=== PATIENT | male | born 1975 | race Caucasian/White ===

== ENCOUNTER 2021-05-29 23:18 | Inpatient (IN) | payer OTHER ==
[~2021-05-29] VITALS: Ht 172.7 cm; Wt 79.8 kg
--- NOTE | ~2021-05-29 | EMS ---
[address] [address] EMS Patient Care Report Name: YUVAL DAMON Room #: 359-P ADM IN M.R.#: [id number] Admission: 05/30/21 Attend Phys: Juan Francisco Gonzales MD Discharge: Date of : [birth year] Report #: [id number] THIS REPORT FOR: //name// Report Transmitted: 05/31/2021 09:44 EMS Care Summary [place], [place]/[facility] Incident [id number] @ 05/29/2021 22:51 Incident Location [address] [place] [address] Patient YUVAL DAMON Male, 49 Years 1972-05-24 Patient Address Patient History Asthma,Novel Coronavirus (COVID-19), Patient Allergies No known allergies, Patient Medications Albuterol, Chief Complaint Shortness of breath Disposition Transported No Lights/[place] Reason Breathing Problem Transported To [facility] Narrative Arrived on scene to be greeted by our patient at the front door of his home. Patient stated he had been feeling sick for approximately 2 weeks, with increasing weakness over the previous 7 days. Patient stated he had tested positive for Covid-19 5 days prior. Patient had called EMS due to shortness of breath. Patient stated in complete sentences that he just couldn't catch his [facility] [address] [place] [address] EMS Patient Care Report Name: YUVAL DAMON Room #: 359-P ADM IN M.[place].#: [id number] Admission: 05/30/21 Attend Phys: Juan Francisco Gonzales MD Discharge: Date of : [birth year] Report #: [id number] breath. Patient denied any chest pain, n/v, diarrhea, pain, or injuries. Patient stated he was extremely weak "all over." Initial Vitals @23:05P: 98,R: 22,BP: 137/88,Pain: 0/10,GCS: 15,CO: 0,SpO2: 90,Revised Trauma: 12, @23:00P: 105,R: 24,BP: 138/88,Pain: 0/10,GCS: 15,SpO2: 89,Revised Trauma: 12, Assessments @22:56MENTAL:Event Oriented,Place Oriented,Person Oriented,Time Oriented,SKIN:HEENT:Head/Face: No Abnormalities,Neck/Airway: No Abnormalities,LUNG SOUNDS:General: No Abnormalities,ABDOMEN:General: No Abnormalities,PELVIS//GI:No Abnormalities,EXTREMITIES:Left Arm: No Abnormalities,Right Arm: No Abnormalities,Left Leg: No Abnormalities,Right Leg: No Abnormalities,PULSE:NEURO:No Abnormalities, Impression COVID-19 - Confirmed by testing Procedures @22:56ALS AssessmentResponse: UnchangedSucceeded@23:01Oxygen FlowRate: 4 Device: Nasal Cannula (NC) Response: ImprovedSucceeded Timeline 22:50,Call Received 22:50,Dispatch Notified 22:51,Dispatched 22:52,En Route 22:56,On Scene 22:56,At Patient 22:56,ALS Assessment,Response: UnchangedSucceeded, 23:00,BP: 138/88 M,PULSE: 105,RR: 24 R,SPO2: 89 Ox,ETCO2: ,BG: ,PAIN: 0,GCS: 15, 23:01,Oxygen FlowRate: 4 Device: Nasal Cannula (NC) Response: ImprovedSucceeded, 23:02,Depart Scene 23:05,BP: 137/88 M,PULSE: 98,RR: 22 R,SPO2: 90 Ox,ETCO2: ,BG: ,PAIN: 0,GCS: 15, 23:14,At Destination 23:22,Call Closed Disclaimer v1.1 Copyright 2020 [employer] This EMS Care Summary contains data elements from the applicable legal record (which may be displayed differently). It is designed to provide pertinent information for the following purposes: continuity of care, clinical quality, and state data reporting. The complete legal record is available to ED staff and administrators of the receiving hospital in [facility]'s Patient Tracker. All data [address] [address] EMS Patient Care Report Name: YUVAL DAMON Room #: 359-P ADM IN M.R.#: [id number] Admission: 05/30/21 Attend Phys: Juan Francisco Gonzales MD Discharge: Date of : [birth year] Report #: [id number] is provided "as is."
[2021-05-29 23:19] VITALS: BP 127/80
[2021-05-30 00:14] LABS: ABSOLUTE NEUTROPHILS 10.5 thou/uL (1.4-8.2); BASOPHILS 0.1 % (0.0-2.0); HEMATOCRIT 45.7 % (42.0-52.0); HEMOGLOBIN 15.4 gm/dL (14.0-18.0); LYMPHOCYTES 5.9 % (24.0-44.0); MCH 30.8 pg (26.0-34.0); MCHC 33.8 g/dL (28.0-37.0); MCV 91.1 fL (80.0-100.0); PLATELET COUNT 119 thou/uL (150-400); RBC 5.02 mil/uL (4.50-6.00); RDW 12.6 % (10.5-14.5); WBC 11.4 thou/uL (4.0-11.0)
[2021-05-30 00:30] LABS: ALBUMIN 1.8 g/dL (3.4-5.0); CREATININE 0.8 mg/dL (0.7-1.3); TOTAL BILIRUBIN 0.6 mg/dL (0.2-1.0); TOTAL PROTEIN 4.8 g/dL (6.4-8.2)
[2021-05-30 00:34] LABS: CALCIUM 5.6 mg/dL (8.5-10.1); POTASSIUM 2.8 mmol/L (3.5-5.1)
[2021-05-30 03:19] LABS: BE(vivo) -0.5 mmol/L (-2 to +3); HCO3 22.2 mmol/L (22.0-26.0); PCO2 31.8 mmHg (35.0-45.0); PO2 70.1 mmHg (80.0-100.0); pH 7.461 (7.360-7.450); sO2 95.1 % (92.0-98.0)
[2021-05-30 05:56] LABS: CREATININE 1.2 mg/dL (0.7-1.3); POTASSIUM 3.5 mmol/L (3.5-5.1)
[2021-05-30 05:57] LABS: CALCIUM 8.4 mg/dL (8.5-10.1)
[2021-05-30 07:09] VITALS: BP 112/71
[2021-05-30 07:47] VITALS: BP 131/62
[2021-05-30 11:09] VITALS: BP 127/79
--- NOTE | 2021-05-30 12:57 | EKG ---
[address] [place] [address] ELECTROCARDIOGRAM REPORT Name: YUVAL DAMON Room #: 359-P ADM IN M.R.#: [id number] Admission: 05/30/21 Attend Phys: Haja Samuels MD Discharge: Date of : [birth year] Report #: [id number] [facility] ED Test Date: 2021-05-30 Test Time: 01:03:41 Pat Name: YUVAL DAMON Department: Room: [facility] Gender: M Technical Artist: jessica iverson : 1972-05-24 Requested By: Alirio Durant Order Number: [id number] MD: Markos Adams Measurements Intervals [place] Rate: 102 P: 51 PA: 167 QRS: 41 QRSD: 90 T: -1 QT: 330 QTc: 430 Interpretive Statements Sinus tachycardia Borderline T wave abnormalities No previous ECG available for comparison Electronically Signed On 05-30-2021 12:57:03 CDT by Markos Adams [email or web address] <ELECTRONICALLY SIGNED> By: Markos Adams MD, [facility] 05/30/21 1257 [id number] 0103 Markos Adams MD, FACC /EPI
[2021-05-30 15:04] VITALS: BP 130/81
--- NOTE | 2021-05-30 18:39 | NUR ---
PATIENT ADMIT TO UNIT AT 0800 FROM ER. PATIENT ON NRB. TITRATED TO 3L/NC NOW. A/O X4. DENIES PAIN. WILL KEEP MONITOR.
[2021-05-30 19:27] VITALS: BP 119/75
[2021-05-31 02:52] VITALS: BP 116/76
[2021-05-31 04:49] LABS: ABSOLUTE NEUTROPHILS 3.6 thou/uL (1.4-8.2); BASOPHILS 0.3 % (0.0-2.0); HEMATOCRIT 39.4 % (42.0-52.0); LYMPHOCYTES 13.9 % (24.0-44.0); MCH 31.2 pg (26.0-34.0); MCHC 34.1 g/dL (28.0-37.0); MCV 91.6 fL (80.0-100.0); MONOCYTES 5.9 % (1.0-8.0); PLATELET COUNT 131 thou/uL (150-400); POLYS 79.9 % (36.0-66.0); RBC 4.31 mil/uL (4.50-6.00); RDW 12.6 % (10.5-14.5); WBC 4.5 thou/uL (4.0-11.0)
[2021-05-31 04:52] LABS: HEMOGLOBIN 13.4 gm/dL (14.0-18.0)
[2021-05-31 05:23] LABS: CALCIUM 7.9 mg/dL (8.5-10.1); CREATININE 1.1 mg/dL (0.7-1.3); DIRECT BILIRUBIN 0.1 mg/dL (<0.1-0.2); PHOSPHORUS 2.1 mg/dL (2.6-4.7); POTASSIUM 4.4 mmol/L (3.5-5.1); TOTAL BILIRUBIN 0.5 mg/dL (0.2-1.0); TOTAL PROTEIN 5.9 g/dL (6.4-8.2)
--- NOTE | 2021-05-31 06:27 | HC ---
[facility] [place] [address] CONSULTATION Name: YUVAL DAMON Room #: 359-P ADM IN M.R.#: [id number] Admission: 05/30/21 Attend Phys: Haja Samuels MD Discharge: Date of : [birth year] Report #: [id number] THIS REPORT FOR: cc: FAM - No family physician/PCP FAM - No family physician/PCP Jace Huerta MD ~ DATE OF SERVICE: 05/30/2021 INFECTIOUS DISEASE CONSULTATION ATTENDING PHYSICIAN: Dr. Samuels. REASON FOR EVALUATION: COVID-19 infection, complicated by pneumonitis, respiratory failure. HISTORY OF PRESENT ILLNESS: This is a 49-year-old gentleman with history of asthma, who has been ill for over a week. Noted he tested positive for COVID roughly 5 days ago. He had progressive dyspnea, general fatigue. He is noted to have some fevers as well, diminished p.o. intake. Evaluation in the Emergency Room, markedly elevated CRP of 332. D-dimer of 0.87. ABGs: pH 7.461, pO2 of 70.1, pCO2 of 31.8 and that was on a nonrebreather. Chest x-ray showed a patchy bibasilar pulmonary infiltrate. He is still maintained on 15 liters per mask. ALLERGIES: None known. CURRENT MEDICATIONS: Include dexamethasone, ascorbic acid, Zosyn, zinc. PAST MEDICAL HISTORY: Asthma. SOCIAL HISTORY: No ethanol, tobacco or illicit drug use. FAMILY HISTORY: Noncontributory. REVIEW OF SYSTEMS: Otherwise, unremarkable with the exception of the above. PHYSICAL EXAMINATION: GENERAL: He is clearly ill, bordering on toxic at this point. He does appear to be mildly encephalopathic, although responds appropriately. VITAL SIGNS: Initial temperature 100.8, more recently 99.8, pulse 89, respirations 16, blood pressure 131/62. SKIN: Warm, dry, no rashes. HEENT: Mask in place. Extraocular muscles intact. NECK: Supple. LUNGS: Scattered crackles. I do not appreciate any wheezes. HEART: Distant, regular. I do not appreciate a murmur. [facility] [address] [place] [address] CONSULTATION Name: YUVAL DAMON Room #: 359-P ADM IN M.R.#: [id number] Admission: 05/30/21 Attend Phys: Haja Samuels MD Discharge: Date of : [birth year] Report #: [id number] ABDOMEN: Soft, nontender, nondistended. EXTREMITIES: No cyanosis. GENITOURINARY AND RECTAL: Deferred. LABORATORY DATA: Electrolytes: Sodium 136, potassium 3.5, chloride 98, bicarb is 27, anion gap of 11, BUN and creatinine 16 and 1.2, glucose of 106. Estimated GFR of 65. ABGs: pH 7.461 as noted above, pCO2 of 31.8, pO2 of 70.1 on 15 liters. D-dimer 0.87. Procalcitonin 0.39. ASSESSMENT AND PLAN: COVID-19 infection complicated by pneumonitis and respiratory failure. We will continue aggressive approach with therapeutics in addition to remdesivir we will add baricitinib. Discussed with pharmacy. Continue oxygen therapy as required. He is certainly potentially could experience a deterioration in his overall clinical status. Fortunately other than his asthma, he has been fairly healthy. We will try to obtain any samples for culture as we are able. <ELECTRONICALLY SIGNED> By: Jace Huerta MD 05/31/21 0627 [id number] [id number] Jace Huerta MD /nt
[2021-05-31 08:33] VITALS: BP 130/96
[2021-05-31 11:36] VITALS: BP 119/78
--- NOTE | 2021-05-31 13:44 | NUR ---
INITIAL ASSESSMENT: SW reviewed chart and spoke with nursing and attending physician. Pt was admitted due to COVID pneumonia. Pt placed in Enhanced Isolation. Pt has not received a COVID vaccine. Pt with hx of asthma. Pt is afebrile and on 5L of O2. Pt is on IV abx and Remdesivir. SW spoke with pt via phone. Introduced role of SW. Pt is alert/orientated x 4. Pt reports he lives at home with family. Prior to admission, pt was not using any DME for ambulation. Pt states he has become very weak prior to coming into the hospital. Pt does not have a PCP or health insurance. SW explained that [employer] will be in contact with pt to assist with Medicaid application and/or financial assistance. Pt verbalized understanding. Pt states that his discharge plan is to discharge back home when medically stable. SW is following to assist as needed with discharge planning.
[2021-05-31 15:56] VITALS: BP 144/87
[2021-05-31 20:10] VITALS: BP 120/79
[2021-06-01 04:40] VITALS: BP 118/82
[2021-06-01 05:28] LABS: ABSOLUTE NEUTROPHILS 4.6 thou/uL (1.4-8.2); BASOPHILS 0.6 % (0.0-2.0); EOSINOPHILS 0.1 % (0.0-3.0); HEMATOCRIT 37.7 % (42.0-52.0); HEMOGLOBIN 12.8 gm/dL (14.0-18.0); MCH 31.3 pg (26.0-34.0); MCHC 33.8 g/dL (28.0-37.0); MCV 92.5 fL (80.0-100.0); MONOCYTES 9.8 % (1.0-8.0); PLATELET COUNT 146 thou/uL (150-400); POLYS 76.5 % (36.0-66.0); RBC 4.08 mil/uL (4.50-6.00)
[2021-06-01 05:55] LABS: ALBUMIN 1.9 g/dL (3.4-5.0); CALCIUM 7.8 mg/dL (8.5-10.1); DIRECT BILIRUBIN 0.2 mg/dL (<0.1-0.2); PHOSPHORUS 2.9 mg/dL (2.5-4.9); POTASSIUM 4.3 mmol/L (3.5-5.1); TOTAL BILIRUBIN 0.5 mg/dL (0.2-1.0); TOTAL PROTEIN 5.7 g/dL (6.4-8.2)
[2021-06-01 07:27] VITALS: BP 123/87
[2021-06-01 10:08] LABS: HIV ANTIBODY Non Reactive (Non Reactive)
[2021-06-01 12:03] VITALS: BP 121/85
--- NOTE | 2021-06-01 14:31 | NUR ---
SW reviewed chart and spoke with nursing and attending physician. Pt remains in Enhanced Isolation due to COVID. Pt is afebrile and on 4L of O2. Pt is on IV abx and COVID meds. PT/OT evals ordered today. Plan is for pt to discharge home when medically stable. KAY is following to assist as needed with discharge planning.
--- NOTE | 2021-06-01 16:16 | NUR ---
ASSESSMENTS PER CHART. PT UP TO CHAIR THIS MORNING. WILL ATTEMPT TO GET TO CHAIR FOR DINNER WELL. PT DENIES PAIN THROUGHOUT SHIFT. GIVEN MAG [employer] THIS AM FOR CONSTIPATION. NO RESULTS THUS FAR. PT RESTING INTERMITTENTLY MOST OF THE DAY. ATE ALL OF BREAKFAST AND MOST OF LUNCH FOR BETTER APPETITE TODAY. VSS. WILL CONT TO MONITOR AND FOLLOW POC.
[2021-06-01 16:45] VITALS: BP 116/85
[2021-06-01 20:40] VITALS: BP 125/88
[2021-06-02 03:30] LABS: HEMATOCRIT 40.6 % (42.0-52.0); HEMOGLOBIN 13.6 gm/dL (14.0-18.0); MCH 30.9 pg (26.0-34.0); MCHC 33.5 g/dL (28.0-37.0); MCV 92.2 fL (80.0-100.0); PLATELET COUNT 151 thou/uL (150-400); RDW 12.9 % (10.5-14.5); WBC 6.2 thou/uL (4.0-11.0)
[2021-06-02 03:35] LABS: ALBUMIN 2.2 g/dL (3.4-5.0); CREATININE 1.2 mg/dL (0.7-1.3); DIRECT BILIRUBIN 0.1 mg/dL (<0.1-0.2); PHOSPHORUS 2.1 mg/dL (2.6-4.7); POTASSIUM 4.4 mmol/L (3.5-5.1); TOTAL BILIRUBIN 0.5 mg/dL (0.2-1.0); TOTAL PROTEIN 5.9 g/dL (6.4-8.2)
[2021-06-02 04:45] VITALS: BP 124/89
--- NOTE | 2021-06-02 05:06 | NUR ---
PT MAKING PROGRESS TOWARDS GOALS. ON ROOM AIR THROUGHOUT THE NIGHT. HAS DENIED ANY SOA WHILE AT REST. STATES THAT HE HAS COUGHED JUST A FEW TIMES OVERNIGHT. LUNGS DIMINISHED THROUGHOUT.
[2021-06-02 06:27] LABS: ABSOLUTE NEUTROPHILS 4.6 thou/uL (1.4-8.2); LARGE PLATELETS FEW; METAMYELOCYTES 1 %; MYELOCYTES 1 %; PLATELET ESTIMATE NORMAL
[2021-06-02] MEDS ORDERED: GUAIFENESIN DM S5 ML PO (11:34)
[2021-06-02] MEDS ORDERED: DEXAMETHASONE 44 M1 PO (11:34)
[2021-06-02] MEDS ORDERED: OXYGEN MISCELL (11:34)
[2021-06-02 12:52] VITALS: BP 124/89
--- NOTE | 2021-06-02 14:04 | NUR ---
PATIENT TOLERATED ON RA. UP AD ROSA. PROGRESSING TOWARDS POC GOALS. DC TO HOME NOW.
--- NOTE | 2021-06-02 14:41 | NUR ---
DISCHARGE NOTE: KAY reviewed chart and spoke with nursing and attending physician. Pt remains in Enhanced Isolation due to COVID. Pt is afebrile and off O2. Discharge orders completed. KAY faxed face sheet to [facility]. Spoke with Ginger to notify that Case Mgmt will vouch for meds. Total $14.68. KAY provided pt's nurse with Health resource Guide, [facility] list and prescription card to provide pt with discharge ppwk. Pt was discharged prior to SW call. Pt had transportation home. No additional SW needs identified at this time, but is available to assist should needs arise.
== END 2021-06-02 14:34 | disposition home or self-care (01) | DRG 871 ==
LOC: ER 23:18 → EROBS 05-30 02:46 → 3W 05-30 02:46 → EDBD 05-30 02:46 → 3W 05-30 07:10
PROVIDERS: Nurse Practitioner Family; Specialist; Student in an Organized Health Care Education/Training Program; ADMIT Internal Medicine; ATTEND Internal Medicine
PROC: XW033E5 Introduction of Remdesivir Anti-infective into Peripheral Vein, Percutaneous Approach, New Technology Group 5 (ICD-10-PCS; principal; 2021-05-30)
DX: A41.89 Other specified sepsis (principal); U07.1 COVID-19; J80 Acute respiratory distress syndrome; J12.82 Pneumonia due to coronavirus disease 2019; E87.6 Hypokalemia; E83.51 Hypocalcemia; D69.6 Thrombocytopenia, unspecified; E88.09 Other disorders of plasma-protein metabolism, not elsewhere classified
CPT/HCPCS: 10879

== ENCOUNTER 2021-06-14 19:57 | Emergency (ER) | payer OTHER ==
[~2021-06-14] VITALS: Ht 177.8 cm; Wt 80.7 kg
[~2021-06-14 19:57] MED LIST: DEXAMETHASONE 44 M1 PO; GUAIFENESIN DM S5 ML PO; OXYGEN MISCELL
[2021-06-14] MEDS ORDERED: PROAIR HFA8.5 GM INH (20:24)
[2021-06-15] VITALS: BP 147/87
--- NOTE | 2021-06-15 07:16 | EKG ---
[facility] [place] [address] ELECTROCARDIOGRAM REPORT Name: YUVAL DAMON Room #: DEP JEREMY Saini#: [id number] Admission: 06/14/21 Attend Phys: Discharge: 06/15/21 Date of : [birth year] Report #: [id number] [facility] ED Test Date: 2021-06-14 Test Time: 20:05:40 Pat Name: YUVAL DAMON Department: Room: Gender: M Chief Of Party: [place] : 1975 Requested By: Otis Felton Order Number: [id number] MD: Sergio Arora Measurements Intervals [place] Rate: 82 P: 52 CA: 173 QRS: 47 QRSD: 101 T: 28 QT: 367 QTc: 429 Interpretive Statements Sinus rhythm ST elev, probable normal early repol pattern Baseline wander in lead(s) V1 Compared to ECG 05/30/2021 01:03:41 ST (T wave) deviation now present Sinus tachycardia no longer present T-wave abnormality no longer present Electronically Signed On 06-15-2021 7:16:12 CDT by Sergio Arora [email or web address] <ELECTRONICALLY SIGNED> By: Sergio Arora MD, FACC 06/15/21 0716 04 04 Sergio rAora MD, FAC /EPI
== END 2021-06-15 ==
LOC: ER 19:57
DX: R07.89 Other chest pain (principal); J45.909 Unspecified asthma, uncomplicated; Z53.21 Procedure and treatment not carried out due to patient leaving prior to being seen by health care provider